=== PATIENT | female | born 1940 | race Caucasian/White ===

== ENCOUNTER 2017-04-08 08:17 | Emergency (ER) | payer SELFPAY ==
[~2017-04-08] VITALS: Ht 157.5 cm; Wt 75.0 kg
[2017-04-08 08:20] VITALS: Ht 157.5 cm; Wt 75.0 kg
--- NOTE | 2017-04-08 08:48 | ERD ---
ER Documentation Chief Complaint Date/Time DATE: 04/08/17 TIME: 08:40 Chief Complaint back pain x 2 days HPI 77-year-old female who was brought in by her daughter here in the emergency department for left-sided flank pain that has been going on and off for almost a year but got worse in the last 48 hours. Patient has history of chronic renal failure, diabetes, dyslipidemia, hypothyroidism, osteoporosis, diabetes. Daughter stated that her creatinine level was 13.5 and November 2016. Patient was nauseous at home but no vomiting. Also reports that she felt like she had a fever but never took her temperature. Denies headache, loss of consciousness, dizziness, blurry vision, changes in vision, photophobia, facial pain, ear pain, throat pain, difficulty swallowing, neck pain, shoulder pain, chest pain, cough, hemoptysis, abdominal pain, loss of appetite, vomiting, hematochezia, diarrhea, constipation, urinary symptoms, , the possibility of being , bladder and bowel incontinences, extremity weakness, extremity tenderness, numbness or tingling sensation, difficulty walking, recent travel, recent exposure to illness, recent antibiotic use in the last 3 months, fever, chills. No known drug allergies. Past medical history of osteoporosis, diabetes, dyslipidemia, hypertension, hypothyroidism, chronic renal failure. Denies surgical history. Social: Retired. Denies smoking, use of alcohol, use of illegal drugs. ROS All systems reviewed and are negative except as per history of present illness. Medications Home Meds Active Scripts Acetaminophen* (Tylophen*) 500 Mg Capsule, 1 CAP PO Q6H Y for PAIN AND OR ELEVATED TEMP, #20 CAP Prov:PASILABAN,KLAR F 04/08/17 Cephalexin* (Keflex*) 500 Mg Capsule, 500 MG PO QID for 5 Days, CAP Prov:PASILABAN,KLAR F 04/08/17 PMhx/Soc Hx Alcohol Use: No Hx Substance Use: No Hx Tobacco Use: No Smoking Status: Never smoker Physical Exam Vitals Vital Signs Date Time Temp Pulse Resp B/P Pulse Ox O2 Delivery O2 Flow Rate FiO2 04/08/17 12:11 54 18 182/76 97 Room Air 04/08/17 08:20 98.1 56 18 172/79 99 Physical Exam Const: [] Head: Atraumatic Eyes: Normal Conjunctiva ENT: Normal External Ears, Nose and Mouth. Neck: Full range of motion..~ No meningismus. Resp: Clear to auscultation bilaterally Cardio: Regular rate and rhythm, no murmurs Abd: Soft, non tender, non distended. Normal bowel sounds. There is no right upper/right lower/epigastric/left upper/left lower abdominal tenderness and light and deep palpation. Negative on Rovsings sign. Negative Newhall sign. Able to jump 5 times without developing right-sided abdominal pain. No peritoneal signs. Skin: No petechiae or rashes Back: Left-sided mild CVA tenderness. Ext: No cyanosis, or edema Neur: Awake and alert Psych: Normal Mood and Affect Result Diagram: 04/08/1790504/08/17 09 Results 24 hrs Laboratory Tests Test 04/08/17 09:03 04/08/17 09:06 04/08/17 10:05 Urine Color YELLOW Urine Clarity CLEAR Urine pH 6.0 Urine Specific Waucoma 1.012 Urine Ketones NEGATIVEmg/dL Urine Nitrite NEGATIVEmg/dL Urine Bilirubin NEGATIVEmg/dL Urine Urobilinogen NEGATIVEmg/dL Urine Leukocyte Esterase 1+Henri/ul Urine Microscopic RBC 2/HPF Urine Microscopic WBC 2/HPF Urine Hemoglobin NEGATIVEmg/dL Urine Glucose NEGATIVEmg/dL Urine Total Protein 2+mg/dl White Blood Count 9.810^3/ul Red Blood Count 4.7710^6/ul Hemoglobin 13.8g/dl Hematocrit 42.6% Mean Corpuscular Volume 89.3fl Mean Corpuscular Hemoglobin 28.9pg Mean Corpuscular Hemoglobin Concent 32.4g/dl Red Cell Distribution Width 12.3% Platelet Count 17490^3/UL Mean Platelet Volume 11.3fl Neutrophils % 49.0% Lymphocytes % 39.3% Monocytes % 7.1% Eosinophils % 3.7% Basophils % 0.6% Nucleated Red Blood Cells % 0.0/100WBC Neutrophils # (Manual) 510^3/ul Lymphocytes # 3.910^3/ul Monocytes # 0.710^3/ul Eosinophils # 0.410^3/ul Basophils # 0.110^3/ul Nucleated Red Blood Cells # 0.010^3/ul Prothrombin Time 12.4Sec Prothrombin Time Ratio 1.0 INR International Normalized Ratio 0.92 Activated Partial Thromboplast Time 28.1Sec Sodium Level 141mmol/L Potassium Level 5.4mmol/L Chloride Level 97mmol/L Carbon Dioxide Level 29mmol/L Anion Gap 20 Blood Urea Nitrogen 40mg/dl Creatinine 1.43mg/dl Glucose Level 212mg/dl Calcium Level 9.6mg/dl Total Bilirubin 0.2mg/dl Direct Bilirubin 0.00mg/dl Indirect Bilirubin 0.2mg/dl Aspartate Amino Transf (AST/SGOT) 26IU/L Alanine Aminotransferase (ALT/SGPT) 28IU/L Alkaline Phosphatase 126IU/L Troponin I < 0.012ng/ml Total Protein 8.3g/dl Albumin 4.2g/dl Globulin 4.10g/dl Albumin/Globulin Ratio 1.02 Amylase Level 128U/L Lipase 219U/L Bedside Glucose 195mg/dL Current Medications Medications (Trade) Dose Ordered Sig/Kurtis Route PRN Reason Start Time Stop Time Status Last Admin Dose Admin Sodium Chloride 1,000 ml @ 1,000 mls/hr Q1H ONCE IV 04/08/17 11:00 04/08/17 11:02 DC Ceftriaxone Sodium (Rocephin) 50 ml @ 100 mls/hr ONCE ONCE IVPB 04/08/17 11:00 04/08/17 11:02 DC Ceftriaxone Sodium (Rocephin) 1 gm ONCE ONCE IM 04/08/17 11:00 04/08/17 11:02 DC 04/08/17 11:30 Lidocaine (Xylocaine 1% (Mdv) 20 ml) 20 ml ONCE ONCE SC 04/08/17 11:30 04/08/17 11:31 DC 04/08/17 11:33 Clonidine (Catapres) 0.1 mg ONCE ONCE PO 04/08/17 12:00 04/08/17 12:01 DC 04/08/17 11:52 Procedures/MDM Examination: Please see physical examination. Disease process, medical treatment was explained to the patient and family member. They verbalized understanding and agreed with the diagnostic tests, medical treatment, and follow-up care. EKG: Sinus bradycardia with a ventricular rate of 56 bpm. No evidence of acute myocardial infarction. No evidence of ischemia. Radiology: CT of the abdomen and pelvis without IV contrast. Blood works: Reviewed. Urinalysis: Has leukocytes. Treatment: IV insertion. Ceftriaxone. Normal saline 1 L. Patient and her daughter are refusing IV fluids and ceftriaxone IV. They both stated that they prefer ceftriaxone IM and be discharged home with the fluids and will make sure to hydrate at home. Ceftriaxone IM. Re-evaluation: Denies headache, dizziness, blurry vision, neck pain, shoulder pain, chest pain, back pain, abdominal pain, nausea, vomiting. No episode of emesis in the emergency department. Alert and oriented 4. Speaks full and clear sentences. Respirations even and unlabored. Lung sounds clear to auscultation. Active bowel sounds. There is no right upper/right lower/ epigastric/left upper/left lower abdominal tenderness and light and deep palpation. Negative on Rovsings sign. Negative Darlyn sign. Able to jump 5 times without developing right-sided abdominal pain. No peritoneal signs. Ambulatory with steady gait. No neurovascular deficits. No neurological deficits. Consultation: Case was discussed with supervising physician, Dr. Danny Handley who agreed with my medical decision making. Differential diagnosis: Medical decision makin-year-old female who was brought in by her daughter here in the emergency department for left-sided flank pain that has been going on and off for almost a year but got worse in the last 48 hours. Patient has history of chronic renal failure, diabetes, dyslipidemia, hypothyroidism, osteoporosis, diabetes. Daughter stated that her creatinine level was 13.5 and November 2016. Patient was nauseous at home but no vomiting. Also reports that she felt like she had a fever but never took her temperature. Patient's complaint, patient's history about her complaint, my physical findings, diagnostic test results, my reevaluation are consistent my final diagnosis of UTI. Medications prescribed are the following: Keflex. Patient and family member are made aware of the side effects and adverse reactions of the medications prescribed. Instructed on when to seek emergent and medical attention in case allergic/anaphylactic reactions or severe side effects and or adverse reactions to medications. Patient and family member verbalized understanding. Patient instructed Instructed to follow-up with his PCP in 24-48 hours. Instructed to Call 911 for chest pain, shortness of breath. Advised to come back here in ED as soon as possible for severity of symptoms which includes but not limited to: any new symptoms; shortness of breath/difficulty of breathing; cardiovascular changes; severe gastrointestinal symptoms; signs and symptoms of bleeding and or infection; signs of compartment syndrome/neurovascular changes; neurological changes/deficits. Patient and family member verbalized understanding. Upon discharge, patient is alert and oriented x 4, speaks full and clear sentences, denies pain, has no neurological deficits, has no neurovascular deficits, difficulty of breathing. Breathing even and unlabored. Lung sounds are clear to auscultation. Not in distress. Appears comfortable. Ambulatory with steady gait. Appears satisfied with care provided here in ED. Departure Diagnosis: Primary Impression: UTI (urinary tract infection) Additional Impressions: Hyperkalemia Refuses treatment Condition: Stable Additional Instructions: Instructed to follow-up with his PCP in 24-48 hours. Instructed to Call 911 for chest pain, shortness of breath. Advised to come back here in ED as soon as possible for severity of symptoms which includes but not limited to: any new symptoms; shortness of breath/difficulty of breathing; cardiovascular changes; severe gastrointestinal symptoms; signs and symptoms of bleeding and or infection; signs of compartment syndrome/neurovascular changes; neurological changes/deficits. Patient and family member verbalized understanding. HENRY ALEX Apr 08, 2017 08:48
[2017-04-08 09:17] LABS: BASOPHIL # 0.1 10^3/ul (0.0-0.1); BASOPHILS % 0.6 % (0.0-2.0); EOSINOPHILS # 0.4 10^3/ul (0.0-0.5); EOSINOPHILS % 3.7 % (0.0-7.0); HEMATOCRIT 42.6 % (37.0-47.0); HEMOGLOBIN 13.8 g/dl (12.0-16.0); LYMPHOCYTES # 3.9 10^3/ul (0.8-2.9); LYMPHOCYTES % 39.3 % (15.0-51.0); MEAN CORPUSCULAR HEMOGLOBIN 28.9 pg (29.0-33.0); MEAN CORPUSCULAR HGB CONC 32.4 g/dl (32.0-37.0); MEAN CORPUSCULAR VOLUME 89.3 fl (82.0-101.0); MEAN PLATELET VOLUME 11.3 fl (7.4-10.4); MONOCYTE # 0.7 10^3/ul (0.3-0.9); MONOCYTES % 7.1 % (0.0-11.0); PLATELET COUNT 246 10^3/UL (140-415); RED BLOOD COUNT 4.77 10^6/ul (4.20-5.40); RED CELL DISTRIBUTION WIDTH 12.3 % (11.5-14.5); WHITE BLOOD COUNT 9.8 10^3/ul (4.8-10.8)
[2017-04-08 09:20] LABS: ADD UMIC YES; UR ASCORBIC ACID NEGATIVE (NEGATIVE); UR BILIRUBIN (Dip) NEGATIVE (NEGATIVE); UR BLOOD (Dip) NEGATIVE (NEGATIVE); UR CLARITY CLEAR (CLEAR); UR COLOR YELLOW (YELLOW); UR GLUCOSE (Dip) NEGATIVE (NEGATIVE); UR KETONES (Dip) NEGATIVE (NEGATIVE); UR LEUKOCYTE ESTERASE (Dip) 1+ Leu/ul (NEGATIVE); UR NITRITE (Dip) NEGATIVE (NEGATIVE); UR RBC 2 /HPF (0-5); UR SPECIFIC GRAVITY (Dip) 1.012 (1.003-1.030); UR TOTAL PROTEIN (Dip) 2+ mg/dl (NEGATIVE); UR UROBILINOGEN (Dip) NEGATIVE (NEGATIVE)
[2017-04-08 09:40] LABS: INR 0.92; PROTIME 12.4 Sec (12.2-14.2)
[2017-04-08 09:41] LABS: ALANINE AMINOTRANSFERASE 28 IU/L (13-69); ALBUMIN 4.2 g/dl (3.3-4.9); ALBUMIN/GLOBULIN RATIO 1.02; ALKALINE PHOSPHATASE 126 IU/L (42-121); AMYLASE 128 U/L (11-123); ANION GAP 20 (8-16); ASPARTATE AMINO TRANSFERASE 26 IU/L (15-46); BILIRUBIN,INDIRECT 0.2 mg/dl (0-1.1); BILIRUBIN,TOTAL 0.2 mg/dl (0.2-1.3); BLOOD UREA NITROGEN 40 mg/dl (7-20); CALCIUM 9.6 mg/dl (8.4-10.2); CARBON DIOXIDE 29 mmol/L (21-31); CHLORIDE 97 mmol/L (97-110); CREATININE 1.43 mg/dl (0.44-1.00); GLUCOSE 212 mg/dl (70-220); PARTIAL THROMBOPLASTIN TIME 28.1 Sec (25.0-35.0); POTASSIUM 5.4 mmol/L (3.5-5.1); SODIUM 141 mmol/L (135-144); TOTAL PROTEIN 8.3 g/dl (6.1-8.1)
[2017-04-08 09:54] LABS: TROPONIN-I < 0.012 ng/ml (0.00-0.12)
[2017-04-08] MEDS ORDERED: CEFTRIAXONE 1 GM INJ IM ONE (11:00)
[2017-04-08] MEDS ORDERED: CEFTRIAXONE 1 GM/50 ML (PMX) 50 ML IVPB ONE (11:00)
[2017-04-08] MEDS ORDERED: SOD CHLORIDE 0.9% 1,000 ML IV ONE (11:00)
[2017-04-08] MEDS ORDERED: CEPH-443 PO (11:02)
[2017-04-08] MEDS ORDERED: ACET500C5 PO (11:02)
[2017-04-08] MEDS ORDERED: LIDOCAINE 1% (MDV) 20 ML INJ SC ONE (11:30)
[2017-04-08 12:11] VITALS: BP 182/76; PULSE 54; RESP 18
== END 2017-04-08 12:14 | disposition home or self-care (01) ==
LOC: FTE 08:17
DX: N39.0 Urinary tract infection, site not specified (principal); E87.5 Hyperkalemia; E11.9 Type 2 diabetes mellitus without complications; I10 Essential (primary) hypertension; E03.9 Hypothyroidism, unspecified
CPT/HCPCS: 80053; 81001; 82150; 82962; 83690; 84484; 85025; 85610; 85730; 93005; 96372; 99284; J0696; J7030